=== PATIENT | female | born 1935 | race Hispanic/Latino ===

== ENCOUNTER 2017-12-23 13:41 | Outpatient (CLI) | payer MEDICARE ==
--- NOTE | 2017-12-23 14:52 | RAD ---
RIGHT KNEE FOUR VIEWS: History: Right knee pain. FINDINGS/IMPRESSION: Degenerative changes are present. No fracture, dislocation, or bony destruction is identified. POS: [facility]
== END 2017-12-23 13:42 | disposition home or self-care (01) ==
LOC: SCSRAD 13:41
PROVIDERS: ATTEND Family Medicine
DX: M25.561 Pain in right knee (principal); M17.11 Unilateral primary osteoarthritis, right knee

== ENCOUNTER 2018-12-15 08:20 | Outpatient (CLI) | payer MEDICARE ==
--- NOTE | 2018-12-15 09:39 | BD ---
DEXA BONE DENSITY STUDY: INDICATIONS: An 83-year-old female. Postmenopausal bone mineral screening evaluation. COMPARISON: 11/25/2016 LUMBAR SPINE BMD (g/cm2) T-SCORE L1 0.887 -0.9 L2 0.887 -1.3 L3 0.973 -1.0 L4 1.026 -0.3 TOTAL 0.95 -0.9 NECK 0.67 -1.5 TOTAL 0.994 0.4 Demineralization has progressed since the comparison exam from 11/25/2016. IMPRESSION: T-score indicates osteopenia, placing the patient at increased risk for fracture. The major 10 year osteoporotic fracture risk is calculated at 39%. POS: [facility]
== END 2018-12-15 08:21 | disposition home or self-care (01) ==
LOC: BICMAMMO 08:20
PROVIDERS: ATTEND Family Medicine
DX: Z13.820 Encounter for screening for osteoporosis (principal); Z78.0 Asymptomatic menopausal state; M85.89 Other specified disorders of bone density and structure, multiple sites
CPT/HCPCS: 77080